=== PATIENT | female | born 1985 | race Caucasian/White ===

== ENCOUNTER 2017-04-13 10:50 | Observation (INO) | payer OTHER ==
[~2017-04-13] VITALS: Ht 160 cm; Wt 72.1 kg
[2017-04-15] MEDS ORDERED: PREN-134 PO (07:28)
[2017-04-15 07:46] VITALS: BP 120/74
[2017-04-15] MEDS ORDERED: FERR-89 PO (16:17)
[2017-04-16] MEDS ORDERED: IBUP-2070 PO (15:59)
[2017-04-16] MEDS ORDERED: DSS100 PO (16:00)
== END 2017-04-15 11:25 | disposition home or self-care (01) ==
LOC: 4S 04-15 07:01
PROVIDERS: ADMIT Obstetrics & Gynecology; ATTEND Obstetrics & Gynecology
DX: O62.9 Abnormality of forces of labor, unspecified (principal); M54.5 Low back pain; R10.30 Lower abdominal pain, unspecified; Z3A.40 40 weeks gestation of pregnancy
CPT/HCPCS: 59025; G0378

== ENCOUNTER 2017-04-15 16:16 | Inpatient (IN) | payer OTHER ==
[~2017-04-15 16:16] MED LIST: PREN-134 PO
[2017-04-15] MEDS ORDERED: FERR-89 PO (16:17)
[2017-04-15] MEDS ORDERED: RINGERS SOLUTION,LACTATED 1,000 ML IV SCH (16:20)
[2017-04-15] MEDS ORDERED: OXYTOCIN 30 UNITS/LACT RINGERS 500 ML IV ONE ×2 (16:20→20:06)
[2017-04-15] MEDS ORDERED: RINGERS SOLUTION,LACTATED 1,000 ML IV PRN (16:20)
[2017-04-15] MEDS ORDERED: RINGERS SOLUTION,LACTATED 1,000 ML IV ONE (16:26)
[2017-04-15] MEDS ORDERED: METOCLOPRAMIDE HCL 5 MG/ML 2 ML VIAL IVP PRN (16:30)
[2017-04-15] MEDS ORDERED: CITRIC ACID/SODIUM CITRATE 30 ML SOLUTION UDCUP PO PRN (16:30)
[2017-04-15] MEDS ORDERED: METHYLERGONOVINE MALEATE 0.2 MG/ML VIAL IM PRN (16:30)
[2017-04-15] MEDS ORDERED: FentaNYL CITRATE-PF 100 MCG/2 ML VIAL IVP PRN (16:30)
[2017-04-15] MEDS ORDERED: LIDOCAINE HCL/PF 1% 30 ML VIAL INJ PRN ×2 (16:30→20:15)
[2017-04-15 17:31] LABS: BASOPHILS % (AUTO) 0.4 % (0.0-2.0); EOSINOPHILS % (AUTO) 0.1 % (1.0-6.0); HEMATOCRIT 34.5 % (36-46); HEMOGLOBIN 12.1 g/dL (12.0-16.0); LYMPHOCYTES # (AUTO) 1.9 K/uL (1.0-4.8); LYMPHOCYTES % (AUTO) 14.3 % (22.0-44.0); MEAN CORPUSCULAR HEMOGLOBIN 34.3 pg (26.0-34.0); MEAN CORPUSCULAR HGB CONC 34.9 G/dL (31.0-37.0); MEAN CORPUSCULAR VOLUME 98 fL (80-100); MONOCYTES # (AUTO) 0.8 K/uL (0.1-1.0); MONOCYTES % (AUTO) 5.8 % (2.0-9.0); NEUTROPHILS # (AUTO) 10.5 K/uL (1.8-7.7); NEUTROPHILS % (AUTO) 79.4 % (40.0-70.0); PLATELET COUNT (AUTO) 174 K/uL (150-450); RED BLOOD CELL COUNT(AUTO) 3.52 MIL/uL (4.00-5.20); RED CELL DISTRIBUTION WIDTH 13.7 % (11.5-14.5)
[2017-04-15 17:34] VITALS: BP 123/70
[2017-04-15] MEDS ORDERED: OXYGEN THERAPY IH SCH (20:00)
[2017-04-15] MEDS ORDERED: BENZOCAINE 20%/MENTHOL 56 GM SPRAY CANISTER TP PRN (20:15)
[2017-04-15] MEDS ORDERED: OxyCODONE HCL/ACETAMINOPHEN 5-325 MG TABLET PO PRN ×2 (20:15)
[2017-04-15] MEDS ORDERED: IBUPROFEN 800 MG TABLET PO PRN (20:15)
[2017-04-15] MEDS ORDERED: LANOLIN 7 GM OINTMENT TP PRN (20:15)
[2017-04-15] MEDS ORDERED: MAGNESIUM HYDROXIDE SUSPENSION 30 ML UDCUP PO PRN (20:15)
[2017-04-15] MEDS ORDERED: GLYCERIN/WITCH HAZEL LEAF 40 PADS JAR TP PRN (20:15)
[2017-04-16] MEDS ORDERED: IBUP-2070 PO (15:59)
[2017-04-16] MEDS ORDERED: DSS100 PO (16:00)
== END 2017-04-16 18:35 | disposition home or self-care (01) | DRG 775 ==
LOC: OBSVTOIN 16:16 → 4S 16:16
PROVIDERS: ADMIT Obstetrics & Gynecology; ATTEND Obstetrics & Gynecology
PROC: 10E0XZZ Delivery of Products of Conception, External Approach (ICD-10-PCS; principal; 2017-04-15)
PROC: 0KQM0ZZ Repair Perineum Muscle, Open Approach (ICD-10-PCS; 2017-04-15)
PROC: 3E0R3BZ Introduction of Anesthetic Agent into Spinal Canal, Percutaneous Approach (ICD-10-PCS; 2017-04-15)
PROC: 00HU33Z Insertion of Infusion Device into Spinal Canal, Percutaneous Approach (ICD-10-PCS; 2017-04-15)
DX: O77.0 Labor and delivery complicated by meconium in amniotic fluid (principal); O70.1 Second degree perineal laceration during delivery; Z37.0 Single live birth; Z3A.40 40 weeks gestation of pregnancy
CPT/HCPCS: 86850; 86900; 86901; J2590; J7120

== ENCOUNTER 2020-07-02 11:19 | Inpatient (IN) | payer OTHER ==
[~2020-07-02] VITALS: Ht 159 cm; Wt 68.5 kg
[~2020-07-02 11:19] MED LIST changes: +DSS100 PO; +IBUP-2070 PO
[2020-07-02 11:36] VITALS: BP 114/59
[2020-07-02] MEDS ORDERED: RINGERS SOLUTION,LACTATED 1,000 ML IV PRN (11:45)
[2020-07-02] MEDS ORDERED: METOCLOPRAMIDE HCL 5 MG/ML 2 ML VIAL IVP PRN (11:45)
[2020-07-02] MEDS ORDERED: FentaNYL CITRATE PF 100 MCG/2 ML VIAL IVP PRN (11:45)
[2020-07-02] MEDS ORDERED: METHYLERGONOVINE MALEATE 0.2 MG/ML VIAL IM PRN (11:45)
[2020-07-02] MEDS ORDERED: CITRIC ACID/SODIUM CITRATE 30 ML SOLUTION UDCUP PO PRN (11:45)
[2020-07-02] MEDS ORDERED: OXYTOCIN 30 UNITS/LACT RINGERS 500 ML IV ONE (11:45)
[2020-07-02] MEDS ORDERED: RINGERS SOLUTION,LACTATED 1,000 ML IV SCH (11:45)
[2020-07-02] MEDS ORDERED: OXYGEN THERAPY IH SCH (11:45)
[2020-07-02] MEDS ORDERED: LIDOCAINE 1%/EPI 1:200,000/PF 30 ML VIAL SQ ONE (12:00)
[2020-07-02] MEDS ORDERED: LIDOCAINE/PF 1% 30 ML VIAL SQ PRN (12:00)
[2020-07-02 12:28] LABS: COVID AG,FIA SOURCE NASOPHARYNGEAL
[2020-07-02 12:33] LABS: BASOPHILS % (AUTO) 0.3 % (0.0-2.0); EOSINOPHILS % (AUTO) 0.2 % (1.0-6.0); HEMATOCRIT 35.6 % (36-46); HEMOGLOBIN 12.2 g/dL (12.0-16.0); LYMPHOCYTES # (AUTO) 2.3 K/uL (1.0-4.8); LYMPHOCYTES % (AUTO) 17.5 % (22.0-44.0); MEAN CORPUSCULAR HEMOGLOBIN 33.4 pg (26.0-34.0); MEAN CORPUSCULAR HGB CONC 34.1 G/dL (31.0-37.0); MEAN CORPUSCULAR VOLUME 98 fL (80-100); MONOCYTES # (AUTO) 0.7 K/uL (0.1-1.0); MONOCYTES % (AUTO) 5.2 % (2.0-9.0); NEUTROPHILS # (AUTO) 10.2 K/uL (1.8-7.7); NEUTROPHILS % (AUTO) 76.8 % (40.0-70.0); PLATELET COUNT (AUTO) 216 K/uL (150-450); RED BLOOD CELL COUNT(AUTO) 3.64 MIL/uL (4.00-5.20); RED CELL DISTRIBUTION WIDTH 13.1 % (11.5-14.5)
[2020-07-02] MEDS ORDERED: LANOLIN 7 GM OINTMENT TP PRN (13:00)
[2020-07-02] MEDS ORDERED: MEASLES/MUMPS/RUBELLA VACCINE, LIVE 0.5 ML/VIAL SQ ONE (13:00)
[2020-07-02] MEDS ORDERED: IBUPROFEN 600 MG TABLET PO PRN (13:00)
[2020-07-02] MEDS ORDERED: OxyCODONE HCL/ACETAMINOPHEN 5-325 MG TABLET PO PRN ×2 (13:00)
[2020-07-02] MEDS ORDERED: RINGERS SOLUTION,LACTATED 1,000 ML IV ONE (13:00)
[2020-07-02] MEDS ORDERED: BENZOCAINE 20%/MENTHOL 56 GM SPRAY CANISTER TP PRN (13:00)
[2020-07-02] MEDS ORDERED: GLYCERIN/WITCH HAZEL LEAF 40 PADS JAR TP PRN (13:00)
[2020-07-02] MEDS ORDERED: PREN-217 PO (14:55)
[2020-07-02] MEDS ORDERED: LEVO100 PO (14:55)
[2020-07-02] MEDS ORDERED: FERR-89 PO (14:55)
[2020-07-02] MEDS: MAGNESIUM HYDROXIDE SUSPENSION 30 ML UDCUP PO SCH (20:21)
[2020-07-03] MEDS ORDERED: LEVOTHYROXINE SODIUM 100 MCG TABLET PO SCH (06:30)
[2020-07-03] MEDS: MAGNESIUM HYDROXIDE SUSPENSION 30 ML UDCUP PO SCH (08:55)
[2020-07-03] MEDS ORDERED: IBUP-2071 PO (10:14)
[2020-07-03] MEDS ORDERED: DOCU-275 PO (10:15)
== END 2020-07-03 13:50 | disposition home or self-care (01) | DRG 807 ==
LOC: OBSVTOIN 11:19 → 4S 11:19
PROVIDERS: ADMIT Obstetrics & Gynecology; ATTEND Obstetrics & Gynecology
PROC: 10E0XZZ Delivery of Products of Conception, External Approach (ICD-10-PCS; principal; 2020-07-02)
DX: O69.81X0 Labor and delivery complicated by cord around neck, without compression, not applicable or unspecified (principal); Z37.0 Single live birth; Z3A.38 38 weeks gestation of pregnancy; Z20.822 Contact with and (suspected) exposure to COVID-19
CPT/HCPCS: 86850; 86900; 86901; 87426; J2590; J3490; J7120